=== PATIENT | female | born 1950 | race Caucasian/White ===

== ENCOUNTER → 2017-01-23 | Outpatient (CLI) | payer MEDICARE | END | disposition home or self-care (01) | LOC: PCVCCLINIC 14:26 | PROVIDERS: ATTEND Nuclear Medicine Nuclear Cardiology | DX: I65.23 Occlusion and stenosis of bilateral carotid arteries (principal); I73.9 Peripheral vascular disease, unspecified; I10 Essential (primary) hypertension; E78.00 Pure hypercholesterolemia, unspecified; J44.9 Chronic obstructive pulmonary disease, unspecified; M32.9 Systemic lupus erythematosus, unspecified; E11.9 Type 2 diabetes mellitus without complications; R07.9 Chest pain, unspecified | CPT/HCPCS: 93880; G0463 ==

== ENCOUNTER → 2017-02-13 | Outpatient (CLI) | payer MEDICARE ==
[~2017-02-13] MED LIST: CEFAZOLIN 2GM PREMIX 50 ML IV ONE; CLOPIDOGREL BISULFATE 75 MG TABLET ONE; DIAZEPAM 10 MG TABLET ONE; FENTANYL PF 100 MCG/2 ML VIAL. ONE; HEPARIN 5,000 UNIT/ML VIAL for PCVC ONE; HEPARIN for ARTERIAL LINE 1,500 ML ONE; HYDROCODONE/APAP 5/325MG TABLET. ONE; IODIXANOL 270 MG/ML 100 ML VIAL. ONE; IOHEXOL 350 MG/ML 100ML VIAL. ONE; IV NORMAL SALINE 1000ML BAG 1,000 ML ONE; IV NORMAL SALINE 500ML BAG 0 ML ONE; LIDOCAINE 1% Multi-Dose 20 ML VIAL. ONE; METOPROLOL TARTRATE 5 MG/5 ML VIAL. ONE; MIDAZOLAM HCL 2 MG/2 ML VIAL. ONE; PROTAMINE 50 MG/5 ML VIAL. IV ONE; hydrALAZINE 20 MG/ML VIAL. ONE
== END | disposition home or self-care (01) ==
LOC: PCVCINTER 07:46
PROVIDERS: ATTEND Nuclear Medicine Nuclear Cardiology
DX: I70.298 Other atherosclerosis of native arteries of extremities, other extremity (principal); I70.203 Unspecified atherosclerosis of native arteries of extremities, bilateral legs; I70.1 Atherosclerosis of renal artery; I15.0 Renovascular hypertension; I70.0 Atherosclerosis of aorta
CPT/HCPCS: 36252; 37221; 37223; 75716; 76936; 76937; 93458; C1725; C1751; C1769; C1876; C1894; J0360; J0690; J1644; J2250; J3010; J3490; J7030; Q9967; J7040

== ENCOUNTER → 2017-02-16 | Outpatient (CLI) | payer MEDICARE | END | disposition home or self-care (01) | LOC: PCVCIMAG 12:50 | PROVIDERS: ATTEND Nuclear Medicine Nuclear Cardiology | DX: I72.8 Aneurysm of other specified arteries (principal) | CPT/HCPCS: 93926 ==